=== PATIENT | female | born 2000 | race Caucasian/White ===

== ENCOUNTER 2024-01-18 10:26 | Emergency (ER) | payer BC ==
[2024-01-18] MEDS ORDERED: Sodium Chloride 0.9% 10 ML Syringe FLUSH PRN (11:05)
[2024-01-18 11:25] LABS: BASOPHILS ABSOLUTE AUTO 0.02 10^3/uL (0.00-0.10); BASOPHILS PERCENT AUTO 0.1 % (0.0-1.0); EOSINOPHILS ABSOLUTE AUTO 0.31 10^3/uL (0.10-0.30); HEMATOCRIT 38.4 % (37.0-47.0); HEMOGLOBIN 12.7 g/dL (12.0-16.0); IMMATURE GRAN ABSOLUTE AUTO 0.05 10^3/uL (0.00-0.50); IMMATURE GRAN PERCENT AUTO 0.3 % (0.0-5.0); LYMPHOCYTES ABSOLUTE AUTO 1.25 10^3/uL (1.00-4.00); MEAN CORPUSCULAR HEMOGLOBIN 29.8 pg (27.0-31.0); MEAN CORPUSCULAR HGB CONC 33.1 g/dL (32.0-36.0); MEAN CORPUSCULAR VOLUME 90.1 fL (82.0-92.0); MONOCYTES ABSOLUTE AUTO 0.65 10^3/uL (0.10-0.80); MONOCYTES PERCENT AUTO 4.1 % (2.0-8.0); NEUTROPHILS ABSOLUTE AUTO 13.39 10^3/uL (2.50-7.00); NEUTROPHILS PERCENT AUTO 85.5 % (50.0-70.0); PLATELET COUNT,PLT 432 10^3/uL (150-400); RED BLOOD CELL COUNT 4.26 10^6/uL (3.80-5.50); RED CELL DISTRIBUTION WIDTH 12.8 % (11.5-14.5); WHITE BLOOD CELL COUNT,WBC 15.67 10^3/uL (5.00-10.00)
[2024-01-18] MEDS: Sodium Chloride 0.9% 1,000 ML IV ONE (11:30)
[2024-01-18 11:42] LABS: ALANINE AMINOTRANSFERASE,ALT 27 U/L (14-63); ALBUMIN 3.19 g/dL (3.40-5.00); ALKALINE PHOSPHATASE 77 U/L (46-116); AMYLASE 34 U/L (25-125); ANION GAP 10.4 mmol/L (5-15); ASPARTATE AMNIOTRANSFERASE,AST 15 U/L (15-37); BILIRUBIN TOTAL 0.4 mg/dL (0.2-1.0); BLOOD UREA NITROGEN,BUN 13 mg/dL (7-18); CALCIUM 8.2 mg/dL (8.7-10.3); CARBON DIOXIDE,CO2 28.1 mmol/L (21.0-32.0); CHLORIDE,CL 103 mmol/L (98-107); CREATININE 0.59 mg/dL (0.51-1.17); EST CRCL DRUG DOSING (CG) 112.86 mL/min; GLUCOSE RANDOM 109 mg/dL (70-140); LIPASE 19 U/L (16-77); POTASSIUM,K 3.5 mmol/L (3.5-5.1); PROTEIN TOTAL,TP 7.2 g/dL (6.4-8.2); SODIUM,NA 138 mmol/L (136-145)
[2024-01-18 11:43] LABS: ESTIMATED GFR 131 mL/min (>=60)
[2024-01-18 11:45] LABS: HCG QUALITATIVE,SERUM NEGATIVE (NEGATIVE)
[2024-01-18] MEDS ORDERED: Naloxone 0.4 MG/ML SDV IVPUSH PRN (12:21)
[2024-01-18] MEDS: Iopamidol 755 Mg/ML 100 ML Bottle IV ONE (12:21)
[2024-01-18] MEDS: Sodium Chloride 0.9% 50 ML IV SCH (12:21)
[2024-01-18] MEDS: Ondansetron 4 MG/2 ML SDV IVPUSH ONE (12:27)
[2024-01-18] MEDS: HYDROmorphone 1 MG/ML Syringe IVPUSH ONE (12:27)
[2024-01-18 12:38] LABS: APPEARANCE,URINE SLIGHTLY CLOUDY (CLEAR); BILIRUBIN,URINE NEGATIVE (NEGATIVE); COLOR,URINE YELLOW (YELLOW); GLUCOSE,URINE NEGATIVE (NEGATIVE); KETONES,URINE NEGATIVE (NEGATIVE); LEUKOCYTE ESTERASE,URINE NEGATIVE (NEGATIVE); NITRITE,URINE NEGATIVE (NEGATIVE); OCCULT BLOOD,URINE SMALL (NEGATIVE); PROTEIN,URINE 30 mg/dL (NEGATIVE); UROBILINOGEN,URINE 0.2 E.U./dL (0.2-1.0)
[2024-01-18 12:40] LABS: BACTERIA,URINE RARE /HPF (NONE TO FEW); EPITHELIAL CELLS,URINE RARE /LPF; WBC,URINE 0-5 /HPF (0-5)
[2024-01-18 12:41] LABS: MUCUS,URINE FEW /LPF (NEGATIVE)
== END 2024-01-18 13:40 | disposition home or self-care (01) ==
LOC: KA.ED 10:26
DX: S34.21XA Injury of nerve root of lumbar spine, initial encounter (principal); K76.0 Fatty (change of) liver, not elsewhere classified; Z88.0 Allergy status to penicillin; Z88.1 Allergy status to other antibiotic agents; Z79.899 Other long term (current) drug therapy; X58.XXXA Exposure to other specified factors, initial encounter
CPT/HCPCS: 36415; 74177; 80053; 81001; 82150; 83690; 84703; 85025; 96361; 96374; 96375; 99284; J1170; J2405; J3490; J7030; Q9967

== ENCOUNTER 2024-06-19 07:35 | Emergency (ER) | payer BC, OTHER ==
[2024-06-19] MEDS: Ondansetron 4 MG Tab.DIS PO ONE (08:38)
[2024-06-19] MEDS: Ketorolac 30 MG/ML SDV IM ONE (08:39)
== END 2024-06-19 08:51 | disposition home or self-care (01) ==
LOC: KA.ED 07:35
DX: S06.0X0A Concussion without loss of consciousness, initial encounter (principal); S09.90XA Unspecified injury of head, initial encounter; W22.8XXA Striking against or struck by other objects, initial encounter; Z88.1 Allergy status to other antibiotic agents; Z88.0 Allergy status to penicillin
CPT/HCPCS: 70450; 96372; 99283; A9270-GY; J1885

== ENCOUNTER 2024-10-18 02:15 | Emergency (ER) | payer OTHER | END 2024-10-18 03:08 | disposition home or self-care (01) | LOC: KA.ED 02:15 | DX: S49.91XA Unspecified injury of right shoulder and upper arm, initial encounter (principal); Z88.0 Allergy status to penicillin; Z88.8 Allergy status to other drugs, medicaments and biological substances; Z91.013 Allergy to seafood; X50.0XXA Overexertion from strenuous movement or load, initial encounter; Y99.0 Civilian activity done for income or pay | CPT/HCPCS: 99283 ==